=== PATIENT | female | born 2000 | race Caucasian/White ===

== ENCOUNTER → 2025-03-13 | Outpatient (REF) | payer OTHER | LOC: M SFHCWAGY 12:44 | PROVIDERS: ATTEND Obstetrics & Gynecology | DX: Z34.80 Encounter for supervision of other normal pregnancy, unspecified trimester (principal) ==

== ENCOUNTER 2025-04-09 11:32 | Inpatient (IN) | payer OTHER ==
[~2025-04-09] VITALS: Ht 165.1 cm; Wt 110.0 kg
[2025-04-09] VITALS (9 sets, daily range): BP systolic 112–159; BP diastolic 62–85
[2025-04-09] MEDS ORDERED: PRENTAB9 PO (11:53)
[2025-04-09] MEDS ORDERED: PENICILLIN G POTASSIUM 5 MU IV 5 MU in DEXTROSE 5% (D5W) MINI-BAG PLU 100 ML IV STA (14:12)
[2025-04-09] MEDS ORDERED: LIDOCAINE 1% MDV 20 ML VIAL INFIL PRN (14:15)
[2025-04-09] MEDS ORDERED: TRANEXAMIC ACID INJection 1,000 MG in NS 100 ML IV PRN (14:15)
[2025-04-09] MEDS ORDERED: OXYTOCIN DRIP 30 UNITS in IV 1 EA IV PRN (14:15)
[2025-04-09] MEDS ORDERED: METHYLERGONOVINE MALEATE 0.2 MG/ML 1 ML VIAL IM PRN (14:15)
[2025-04-09 14:58] LABS: PLATELET COUNT, AUTOMATED 275 10^3/uL (150-450)
[2025-04-09] MEDS: miSOPROStol 50 MCG 1/2 TABLET PO SCH (15:03)
[2025-04-09 15:25] LABS: HEPATITIS B SURFACE ANTIBODY POSITIVE (POSITIVE)
[2025-04-09 15:50] LABS: HIV 1&2 SCREEN NEGATIVE (NEGATIVE)
[2025-04-09 15:58] LABS: HEPATITIS C VIRUS ABY INDEX < 0.02 INDEX (<0.8)
[2025-04-09] MEDS ORDERED: PEN G POT 3,000,000 UNIT/50 ML 3,000,000 UNIT in IV 1 EA IV SCH (18:15)
[2025-04-09] MEDS ORDERED: **PENDING PCN ENTRY XX SCH (21:00)
[2025-04-10] VITALS (27 sets, daily range): BP systolic 99–154; BP diastolic 54–84
[2025-04-10] MEDS: BUTORPHANOL 2 MG/ML 1 ML VIAL IV ONE ×2 (00:30→04:55)
[2025-04-10] MEDS: OXYTOCIN DRIP 30 UNITS in IV 1 EA IV SCH ×2 (13:58→16:34)
[2025-04-10] MEDS: PENICILLIN G POTASSIUM 5 MU IV 5 MU in DEXTROSE 5% (D5W) MINI-BAG PLU 100 ML IV STA (16:34)
[2025-04-10] MEDS: LR 1,000 ML IV SCH (16:35)
[2025-04-10] MEDS ORDERED: EPIDURAL/PCA KEYS XX PRN (19:35)
[2025-04-10] MEDS ORDERED: diphenhydrAMINE 50 MG/ML VIAL IV PRN (19:35)
[2025-04-10] MEDS ORDERED: ONDANSETRON 4MG 2ML VIAL IV PRN (19:35)
[2025-04-10] MEDS ORDERED: NALOXONE INJ 0.4 MG/1 ML VIAL IV PRN (19:35)
[2025-04-10] MEDS: FENTANYL/ROPIVACAINE/NACL BAG 100 ML EPIDURAL SCH (20:04)
[2025-04-10] MEDS: PEN G POT 3,000,000 UNIT/50 ML 3,000,000 UNIT in IV 1 EA IV SCH (20:42)
[2025-04-11] VITALS (28 sets, daily range): BP systolic 84–147; BP diastolic 41–74; TEMP 97.6; O2SAT 96–99
[2025-04-11] MEDS: LR 500 ML IV PRN (00:10)
[2025-04-11] MEDS ORDERED: MORPHINE PRES-FREE INJ 10 MG/10 ML VIAL As Ordered ONE (02:45)
[2025-04-11] MEDS ORDERED: ONDANSETRON 4MG 2ML VIAL As Ordered ONE (02:46)
[2025-04-11] MEDS ORDERED: dexAMETHasone 4 MG/ML 1 ML VIAL As Ordered ONE (02:46)
[2025-04-11] MEDS ORDERED: KETOROLAC 30 MG/ML 1 ML VIAL As Ordered ONE (02:46)
[2025-04-11] MEDS: BICITRA 30 ML SOLN UDC PO ONE (02:46)
[2025-04-11] MEDS: AZITHROMYCIN INJ 500 MG, VIAL MATE ADAPTER 1 EACH in NS 250 ML IV ONE (02:46)
[2025-04-11] MEDS ORDERED: OXYTOCIN INJ 10UNITS/ML 1ML VIAL As Ordered ONE (02:46)
[2025-04-11] MEDS ORDERED: TRANEXAMIC ACID 100 MG/ML 10ML VIAL As Ordered ONE (02:46)
[2025-04-11] MEDS: ACETAMINOPHEN 650 MG SUPP PR ONE (02:48)
[2025-04-11] MEDS: ceFAZolin SODIUM 2 GM in DEXTROSE 5% (D5W) ADV/MINI-BAG 50 ML IV ONE (02:48)
[2025-04-11] MEDS ORDERED: LIDOCAINE 2% W/EPINEPHrine 20 ML VIAL **PRES FREE As Ordered ONE (02:49)
[2025-04-11] MEDS ORDERED: OXYTOCIN 30UNITS IN 0.9% NaCl 500ML IV BAG As Ordered ONE (02:53)
[2025-04-11] MEDS ORDERED: PHENYLephrine 500MCG 5ML (100MCG/ML) SYRINGE As Ordered ONE (03:17)
[2025-04-11] MEDS ORDERED: **NOTE PATIENT COMMENT** MISC XX SCH (03:45)
[2025-04-11] MEDS: SLF 3 ML SYR IV SCH (03:45)
[2025-04-11] MEDS ORDERED: NALOXONE INJ 0.4 MG/1 ML VIAL IV PRN ×2 (03:45)
[2025-04-11] MEDS ORDERED: diphenhydrAMINE 50 MG/ML VIAL IV PRN (03:45)
[2025-04-11 03:58] LABS: CORD GAS ABE A -0.2; CORD GAS HCO3 A 28.2 MMOL/L; CORD GAS O2 SAT A 23.0 %; CORD GAS PCO2 A 60.7 mmHg; CORD GAS PH A 7.285 UNITS; CORD GAS PO2 A 12.6 mmHg; CORD GAS SBC A 22.2 MMOL/L; CORD GAS TCO2 A 30.1 MMOL/L
[2025-04-11 03:59] LABS: CORD GAS ABE V -0.5; CORD GAS HCO3 V 25.2 MMOL/L; CORD GAS O2 SAT V 64.1 %; CORD GAS PCO2 V 44.9 mmHg; CORD GAS PH V 7.367 UNITS; CORD GAS PO2 V 26.0 mmHg; CORD GAS SBC V 23.1 MMOL/L; CORD GAS TCO2 V 26.6 MMOL/L
[2025-04-11] MEDS ORDERED: PERCOCET 5MG/325MG TAB PO PRN (04:45)
[2025-04-11] MEDS ORDERED: RHOGAM 300MCG (1500IU) INJ IM SCH (04:45)
[2025-04-11] MEDS ORDERED: SIMETHICONE 80MG CHEW TAB PO PRN (04:45)
[2025-04-11] MEDS: LR 1,000 ML IV SCH (04:45)
[2025-04-11] MEDS ORDERED: ONDANSETRON 4MG 2ML VIAL IV PRN (04:45)
[2025-04-11] MEDS ORDERED: MORPHINE 4 MG/ML 1 ML VIAL IV PRN (04:45)
[2025-04-11] MEDS ORDERED: CALCIUM CARBONATE 500 MG CHEW U/D PO PRN (04:45)
[2025-04-11] MEDS: DOCUSATE SODIUM 100 MG CAPSULE PO SCH (09:18)
[2025-04-11] MEDS: KETOROLAC 30 MG/ML 1 ML VIAL IV SCH (09:19)
[2025-04-11] MEDS: PRENATAL VITAMINS CHEWABLE TABLET PO SCH (09:19)
[2025-04-11] MEDS: ENOXAPARIN 60 MG/0.6 ML SYRINGE (J1650 PER 10MG) SC SCH (09:21)
[2025-04-11] MEDS: UNRESOLVED CLARIFICATION ENTRY XX SCH (12:30)
[2025-04-12 02:00] VITALS: BP 115/55; O2SAT 98
[2025-04-12] MEDS: IBUPROFEN 800 MG TAB PO SCH (04:58)
[2025-04-12 05:56] VITALS: BP 115/56; O2SAT 100
[2025-04-12] MEDS: ACETAMINOPHEN 500 MG TAB PO PRN (06:50)
[2025-04-12 07:01] LABS: PLATELET COUNT, AUTOMATED 215 10^3/uL (150-450)
[2025-04-12 10:00] VITALS: BP 126/75; O2SAT 97
[2025-04-12] MEDS: PERCOCET 5MG/325MG TAB PO PRN (11:34)
[2025-04-12 14:03] VITALS: BP 131/76; O2SAT 98
[2025-04-12 18:00] VITALS: BP 119/74; O2SAT 98
[2025-04-12 22:00] VITALS: BP 125/85; O2SAT 98
[2025-04-13] MEDS: MOM 30 ML SUSPENSION UDC PO PRN (00:58)
[2025-04-13 02:00] VITALS: BP 106/68; O2SAT 97
[2025-04-13 06:00] VITALS: BP 123/66; O2SAT 98
[2025-04-13] MEDS: MEASLES,MUMPS,RUBELLA VACCINE INJ (MMR-II) SC.IMMUN ONE (09:00)
[2025-04-13] MEDS ORDERED: COLA100C5 PO (09:50)
[2025-04-13] MEDS ORDERED: IBUP80TA PO (09:50)
[2025-04-13 10:00] VITALS: BP 118/77; O2SAT 99
[2025-04-13 14:00] VITALS: BP 126/68; O2SAT 99
[2025-04-13 18:00] VITALS: BP 138/66; O2SAT 98
[2025-04-14 06:00] VITALS: BP 132/80; O2SAT 97
[2025-04-14] MEDS: GABAPENTIN 300 MG CAP PO ONE (11:51)
== END 2025-04-14 13:16 | disposition home or self-care (01) | DRG 773 ==
LOC: M LDO 11:32 → M LDI 13:18 → M OBS 04-11 05:55
PROVIDERS: ADMIT Obstetrics & Gynecology; ATTEND Obstetrics & Gynecology
PROC: 3E033VJ Introduction of Other Hormone into Peripheral Vein, Percutaneous Approach (ICD-10-PCS; 2025-04-09)
PROC: 10D00Z1 Extraction of Products of Conception, Low, Open Approach (ICD-10-PCS; principal; 2025-04-11 02:36)
DX: O76 Abnormality in fetal heart rate and rhythm complicating labor and delivery (principal); Z37.0 Single live birth; Z3A.39 39 weeks gestation of pregnancy; O99.824 Streptococcus B carrier state complicating childbirth; O62.0 Primary inadequate contractions; O36.60X0 Maternal care for excessive fetal growth, unspecified trimester, not applicable or unspecified